=== PATIENT | male | born 1990 | race Caucasian/White ===

== ENCOUNTER 2024-02-20 16:12 | Outpatient (CLI) | payer BC, SELFPAY ==
--- NOTE | 2024-02-20 16:21 | XR_ITS ---
PROCEDURE INFORMATION: Exam: XR Lumbosacral Spine Exam date and time: 02/20/2024 4:26 PM Age: 33 years old Clinical indication: Pain; Lumbago with sciatica; Left; Additional info: Sciatica, left side TECHNIQUE: Imaging protocol: Radiologic exam of the lumbosacral spine. Views: 4 or 5 views. COMPARISON: No relevant prior studies available. FINDINGS: Bones/joints: There are 5 lumbar type vertebral bodies with diminutive 12th ribs. No loss of vertebral body height. No significant degenerative changes. No spondylolisthesis. Soft tissues: Unremarkable. IMPRESSION: Unremarkable lumbar spine x-rays.
== END 2024-02-20 23:59 | disposition home or self-care (01) ==
LOC: RAD 16:13
PROVIDERS: PCP Nurse Practitioner Family; Visit Provider Nurse Practitioner Family
DX: M54.32 Sciatica, left side (principal)
CPT/HCPCS: 72110

== ENCOUNTER 2024-04-26 09:32 | Outpatient (CLI) | payer BC, SELFPAY ==
[2024-04-26 10:01] LABS: Eosinophils # 0.1 K/mm3 (0.0-0.4); Mean Platelet Volume 8.8 fl (7.4-10.4); Monocytes # 0.5 K/mm3 (0.1-1.0); White Blood Count 6.3 K/mm3 (4.8-10.8)
[2024-04-26 10:54] LABS: Blood Urea Nitrogen 11 mg/dl (9-20); Estimated Glomerular Filt Rate 69 ml/min (>60); GFR (African American) 83 ML/MIN (>60)
[2024-04-26 12:01] LABS: Basophils % 0.5 % (0.1-2.0); Eosinophils % 1.2 % (0.1-12.0); Hematocrit 47.1 % (42.0-52.0); Hemoglobin 15.7 g/dL (14.1-18.0); Lymphocytes # 1.5 K/mm3 (0.7-4.5); Lymphocytes % 24.5 % (10-50); Mean Corpuscular HGB Conc 33.4 g/dL (31.8-35.4); Mean Corpuscular Hemoglobin 30.4 pg (27.0-31.2); Mean Corpuscular Volume 91.1 fl (80-94); Monocytes % 7.9 % (1.7-9.3); Neutrophils # 4.2 K/mm3 (1.8-7.8); Platelet Count 215 K/mm3 (142-424); Red Blood Count 5.18 M/mm3 (4.60-6.20); Red Cell Distribution Width 14.1 % (11.5-17.5)
[2024-04-27 10:13] LABS: Estradiol 8.2 pg/mL (7.6-42.6); LH 4.6 mIU/mL (1.7-8.6); Prolactin 10.6 ng/mL (3.9-22.7); Sex Hormone Binding Globulin 7.5 nmol/L (16.5-55.9); Testosterone,Total 163 ng/dL (264-916)
[2024-04-27 16:23] LABS: FSH 3.7 mIU/mL (1.5-12.4)
[2024-04-29 04:11] LABS: Testosterone,Free 8.8 pg/mL (8.7-25.1)
[2024-06-07 11:12] LABS: Dihydrotestosterone DHT 7.7
== END 2024-04-26 23:59 | disposition home or self-care (01) ==
LOC: LAB 09:32
PROVIDERS: PCP Nurse Practitioner Family; Visit Provider Urology
DX: R53.83 Other fatigue (principal)
CPT/HCPCS: 36415; 82565; 82626; 82670; 83001; 83002; 84146; 84270; 84402; 84403; 84520; 85025

== ENCOUNTER 2025-01-13 10:39 | Outpatient (CLI) | payer OTHER, SELFPAY ==
[2025-01-13 11:45] LABS: Iron 128 ug/dL (49-181)
[2025-01-13 11:55] LABS: Total Iron Binding Capacity 348 ug/dL (261-462)
[2025-01-13 12:20] LABS: Ferritin 239 ng/ml (17.9-464)
== END 2025-01-13 23:59 | disposition home or self-care (01) ==
LOC: LAB 10:41
PROVIDERS: PCP Nurse Practitioner Family; Visit Provider Internal Medicine Medical Oncology
DX: R79.89 Other specified abnormal findings of blood chemistry (principal)
CPT/HCPCS: 36415; 82728; 83540; 83550

== ENCOUNTER 2025-09-13 13:43 | Outpatient (CLI) | payer OTHER, SELFPAY ==
--- NOTE | 2025-09-13 13:46 | XR_ITS ---
FINAL REPORT CLINICAL HISTORY: left knee pain FINDINGS: AP, lateral and oblique views of the left knee were obtained. There is no prior exam for comparison. There is no acute fracture or dislocation. There is subtle irregularity of the medial femoral condyle, osteochondral lesion not excluded. There is no joint effusion. IMPRESSION: Irregularity medial femoral condyle, osteochondral lesion not excluded. Consider MRI. Reviewed, Interpreted and Dictated by Gemma Hernandez MD Transcribed by Demetria Richey Authenticated and [facility]
--- OUTSIDE RECORDS SUMMARY | 2025-09-13 13:50 | XMS_ITS | Clinical Summary ---
Author Organization [facility] Address [address] [place] [phone] Phone Care Team Providers [facility] [place] [facility] Name Role Phone Unavailable Primary Care Provider Unavailabl e Social History Tobacco Use Types Packs/Day Years Used Date Smoking Tobacco: Never Assessed Sex and Gender Information Value Date Recorded Sex Assigned at Not on file Legal Sex Male 10:23 AM EDT Gender Identity Not on file Sexual Orientation Not on file Plan of Treatment Health Maintenance Due Date Last Done Comments Annual Wellness Exam 1991 DTaP/TDaP/Td (1 - Tdap) 2007 Hepatitis B Vaccine (1 of 3 - 19+ 3-dose series) 2007 COVID-19 Vaccine (2024-2 6 season) 2025 Influenza Vaccine (#1) 2025 Meningococcal B Vaccine Aged Out No l onger eligible based on patient's age to complete this topic Pneumococcal Vaccine 0-49 Aged Out No longer eligible based on patient's age to complete this topic
== END 2025-09-13 23:59 | disposition home or self-care (01) ==
LOC: RAD 13:44
PROVIDERS: PCP Nurse Practitioner Family; Visit Provider Physician Assistant
DX: M25.562 Pain in left knee (principal); R93.6 Abnormal findings on diagnostic imaging of limbs
CPT/HCPCS: 73562